=== PATIENT | male | born 1965 | race African-American/Black ===

== ENCOUNTER 2018-04-03 11:28 | Observation (INO) | payer BC ==
[~2018-04-03] VITALS: Ht 170.2 cm; Wt 95.3 kg
[~2018-04-03 11:28] MED LIST: ACTOS30 MG PO; ACTOS45 MG OR; ACYCLOVIR400 MG PO; ADULT ASPIRIN E81 MG PO; AMLOD/BENAZP1 CA5 PO; ASPIRIN LOW DOS81 MG PO; BACTROBAN2 % EX; BRILINTA90 MG PO; CEPHALEXIN500 MG OR; FLEXERIL10 MG PO; GLYBURIDE5 M1 OR; GLYBURIDE5 MG PO; HYZAAR1 TA2 PO; JANUMET1 TA1 PO; LEVEMIR1000 UNITS SC; LIPITOR20 M1 PO; LISINOPRIL20 M1 OR; LORTAB 7.5 OR; METFORMIN500 M1 OR; METFORMIN500 MG PO; MULTIVITA2 PO; PIOGLITAZONE HC15 MG PO; PRAVACHOL40 MG OR; PRAVASTATIN20 MG PO; VALACYCLOVIR H500 MG PO; ZOVIRAX800 MG OR; [UNRECOGNIZED DRUG - REMARK]
[2018-04-03 12:03] LABS: HEMATOCRIT 38.9 % (39.0-50.0); HEMOGLOBIN 12.8 g/dl (14.0-18.0); IMMATURE GRANULOCYTES 0.3 % (0.0-5.0); MEAN CELL VOLUME 87.4 fL CALC (80.0-100.0); MEAN CORPUSCULAR HGB 28.8 pG CALC (26.0-32.0); MEAN CORPUSCULAR HGB CONC 32.9 g/L CALC (32.0-36.0); NEUT# 4.02 thou/uL (1.82-7.42); RED BLOOD COUNT 4.45 mill/uL (4.70-6.10); RED CELL DISTRI WIDTH 12.9 % (11.5-15.5)
[2018-04-03 12:19] LABS: INTERNATIONAL NORMALIZED RATIO 0.9 RATIO (0.7-1.3); PROTHROMBIN TIME 9.7 SECONDS (9.0-12.5)
[2018-04-03 12:20] LABS: ALKALINE PHOSPHATASE 122 u/l (38-126); ANION GAP 13 (6-22 (CALC)); BILIRUBIN, TOTAL 0.3 mg/dL (0.0-1.4); BUN 20 mg/dL (9-20); BUN/CREATININE RATIO 16 (12-20 (CALC)); CARBON DIOXIDE 25 mmol/l (22-30); CHLORIDE 105 mmol/l (95-108); CREATININE 1.3 mg/dL (0.7-1.3); GFR 58 ML/MIN (>=60 (CALC)); GFR FOR AFR.AMER. > 60 ML/MIN (>=60 (CALC)); SODIUM 139 mmol/l (137-146); TOTAL PROTEIN 6.3 g/dL (6.3-8.2)
[2018-04-03 12:32] LABS: ALBUMIN 3.2 g/dL (3.2-5.0); SGOT/AST 50 u/l (17-59)
[2018-04-03 12:55] LABS: URINE BILIRUBIN - DIPSTICK NEGATIVE (NEGATIVE); URINE BLOOD DIPSTICK MODERATE (NEGATIVE); URINE COLOR YELLOW; URINE GLUCOSE - DIPSTICK >=1000 mg/dL (NEGATIVE); URINE KETONE NEGATIVE (NEGATIVE); URINE LEUK ESTERASE NEGATIVE (NEGATIVE); URINE NITRITE - DIPSTICK NEGATIVE (Negative); URINE PH 5.5 (4.5-8.0); URINE PROTEIN - DIPSTICK >=300 mg/dL (NEG-TRACE); URINE SPECIFIC GRAVITY 1.025; URINE UROBILINOGEN - DIPSTICK 0.2 E.U./dL (0.2)
[2018-04-03 12:57] LABS: BARBITURATES NEGATIVE (NEGATIVE); COCAINE NEGATIVE (NEGATIVE); METHADONE NEGATIVE (NEGATIVE); OXCYCODONE NEGATIVE (NEGATIVE); TETRAHYDROCANNABIONOL NEGATIVE (NEGATIVE); TRICYLIC ANTIDEPRESSANTS NEGATIVE (NEGATIVE)
[2018-04-03 13:05] LABS: URINE WBC 0-2 WBC/hpf (0-5)
[2018-04-03] MEDS ORDERED: ASPIRIN81 MG PO (13:49)
[2018-04-03] MEDS ORDERED: PLAVIX75 MG PO (13:52)
[2018-04-03] MEDS ORDERED: PANTOPRAZOLE SO40 MG PO (13:52)
[2018-04-03] MEDS ORDERED: LEVEMIR FL100 UNIT/M SC (16:35)
[2018-04-03 17:05] VITALS: BP 154/88
[2018-04-03 19:01] VITALS: BP 141/79
[2018-04-04] VITALS: BP 132/80
[2018-04-04 04:01] VITALS: BP 139/84
[2018-04-04 05:12] LABS: HEMATOCRIT 36.6 % (39.0-50.0); HEMOGLOBIN 12.3 g/dl (14.0-18.0); IMMATURE GRANULOCYTES 0.1 % (0.0-5.0); MEAN CELL VOLUME 86.7 fL CALC (80.0-100.0); MEAN CORPUSCULAR HGB 29.1 pG CALC (26.0-32.0); MEAN CORPUSCULAR HGB CONC 33.6 g/L CALC (32.0-36.0); NEUT# 4.16 thou/uL (1.82-7.42); RED BLOOD COUNT 4.22 mill/uL (4.70-6.10); RED CELL DISTRI WIDTH 12.9 % (11.5-15.5)
[2018-04-04 05:27] LABS: ALBUMIN 2.6 g/dL (3.2-5.0); ALKALINE PHOSPHATASE 87 u/l (38-126); AMYLASE 45 u/l (30-110); ANION GAP 10 (6-22 (CALC)); BILIRUBIN, TOTAL 0.4 mg/dL (0.0-1.4); BUN 15 mg/dL (9-20); BUN/CREATININE RATIO 14 (12-20 (CALC)); CARBON DIOXIDE 27 mmol/l (22-30); CHLORIDE 107 mmol/l (95-108); CREATININE 1.1 mg/dL (0.7-1.3); GFR > 60 ML/MIN (>=60 (CALC)); GFR FOR AFR.AMER. > 60 ML/MIN (>=60 (CALC)); LIPASE 66 u/l (23-300); POTASSIUM 3.6 mmol/l (3.5-5.1); SGOT/AST 38 u/l (17-59); SODIUM 140 mmol/l (137-146); TOTAL PROTEIN 5.5 g/dL (6.3-8.2)
[2018-04-04 08:02] VITALS: BP 156/89
[2018-04-04 11:16] VITALS: BP 152/93
== END 2018-04-04 13:15 | disposition home or self-care (01) | DRG 305 ==
LOC: ED 11:28 → ED-I 15:08 → ED 16:09 → MS2 16:10
PROVIDERS: Emergency Medicine; ADMIT Internal Medicine Nephrology; ATTEND Internal Medicine Nephrology
DX: I10 Essential (primary) hypertension (principal); E11.9 Type 2 diabetes mellitus without complications; E78.5 Hyperlipidemia, unspecified; I25.10 Atherosclerotic heart disease of native coronary artery without angina pectoris; R80.9 Proteinuria, unspecified; T46.5X6A Underdosing of other antihypertensive drugs, initial encounter; I25.2 Old myocardial infarction; Z91.128 Patient's intentional underdosing of medication regimen for other reason; Z86.73 Personal history of transient ischemic attack (TIA), and cerebral infarction without residual deficits; Z95.5 Presence of coronary angioplasty implant and graft
CPT/HCPCS: G0378

== ENCOUNTER 2020-05-08 21:24 | Emergency (ER) | payer BC ==
[~2020-05-08] VITALS: Ht 170.2 cm; Wt 98.8 kg
[~2020-05-08 21:24] MED LIST changes: +ASPIRIN81 MG PO; +LEVEMIR FL100 UNIT/M SC; +PANTOPRAZOLE SO40 MG PO; +PLAVIX75 MG PO
[2020-05-08] MEDS ORDERED: FAMOTIDINE MAXI20 MG (21:47)
[2020-05-08] MEDS ORDERED: NOVOLIN 70/30 INNLT SC (21:48)
[2020-05-08 22:25] LABS: IMMATURE GRANULOCYTES 0.4 % (0.0-5.0); MEAN CELL VOLUME 85.8 fL CALC (80.0-100.0); MEAN CORPUSCULAR HGB 26.8 pG CALC (26.0-32.0); MEAN CORPUSCULAR HGB CONC 31.3 g/dL CAL (32.0-36.0); NEUT# 5.35 thou/uL (1.82-7.42); RED BLOOD COUNT 3.39 mill/uL (4.70-6.10); RED CELL DISTRI WIDTH 14.3 % (11.5-15.5)
[2020-05-08 22:28] LABS: HEMATOCRIT 29.1 % (39.0-50.0); HEMOGLOBIN 9.1 g/dl (14.0-18.0)
[2020-05-08 22:42] LABS: BILIRUBIN, TOTAL 0.4 mg/dL (0.0-1.4); TOTAL PROTEIN 6.4 g/dL (6.3-8.2)
[2020-05-08 22:46] LABS: CREATININE 3.7 mg/dL (0.7-1.3); POTASSIUM 4.4 mmol/l (3.5-5.1)
[2020-05-08 23:45] VITALS: BP 150/84
== END 2020-05-08 23:45 | disposition home or self-care (01) | DRG 684 ==
LOC: ED 21:24
PROVIDERS: Family Medicine
DX: I12.9 Hypertensive chronic kidney disease with stage 1 through stage 4 chronic kidney disease, or unspecified chronic kidney disease (principal); E11.22 Type 2 diabetes mellitus with diabetic chronic kidney disease; N18.9 Chronic kidney disease, unspecified; I25.2 Old myocardial infarction; Z86.73 Personal history of transient ischemic attack (TIA), and cerebral infarction without residual deficits; Z95.5 Presence of coronary angioplasty implant and graft; Z79.4 Long term (current) use of insulin

== ENCOUNTER 2020-12-09 12:12 | Inpatient (IN) | payer MEDICAID ==
[~2020-12-09] VITALS: Ht 170.2 cm; Wt 87.1 kg
[~2020-12-09 12:12] MED LIST changes: +D2000 ULTRA PO; +FAMOTIDINE MAXI20 MG; +FUROSEMIDE20 MG PO; +HYDRALAZINE50 MG PO; +LEVEMIR100 UNIT SC; +METOLAZONE5 MG PO; +METOPROLOL SUCC50 MG PO; +NIFEDIPINE60 MG PO; +NOVOLIN 70/30 F1 INJ SC; +NOVOLIN 70/30 INNLT SC; +VELPHORO500 MG PO
--- NOTE | 2020-12-09 12:30 | NUR ---
PATIENT AMBULATORY TO ROOM BEDSIDE TRIAGE COMPLETED
[2020-12-09 13:02] LABS: HEMATOCRIT 25.1 % (39.0-50.0); HEMOGLOBIN 7.9 g/dl (14.0-18.0); IMMATURE GRANULOCYTES 0.2 % (0.0-5.0); MEAN CELL VOLUME 89.6 fL CALC (80.0-100.0); MEAN CORPUSCULAR HGB 28.2 pG CALC (26.0-32.0); MEAN CORPUSCULAR HGB CONC 31.5 g/dL CAL (32.0-36.0); NEUT# 5.7 thou/uL (1.82-7.42); RED BLOOD COUNT 2.8 mill/uL (4.70-6.10)
--- NOTE | 2020-12-09 13:12 | NUR ---
PATIENT RESTING IN BED WITH SUPPORT/FAMILY AT BEDSIDE. WARM BLANKETS PROVIDED. LABS COLLECTED. PATIENT DECLINED ANY FURTHER NEEDS AT THIS TIME. BED IN LOW POSITION, CALL LIGHT WITHIN REACH.
[2020-12-09 13:18] LABS: ALBUMIN 3.5 g/dL (3.2-5.0); BILIRUBIN, TOTAL 0.3 mg/dL (0.0-1.4); POTASSIUM 3.6 mmol/l (3.5-5.1); TOTAL PROTEIN 7.2 g/dL (6.3-8.2)
[2020-12-09 13:30] LABS: CREATININE 9.8 mg/dL (0.7-1.3)
--- NOTE | 2020-12-09 14:00 | NUR ---
PATIENT LYING IN BED RESTING COMFORTABLY WITH SUPPORT PERSON AT BEDSIDE. VSS
[2020-12-09 14:51] LABS: URINE BILIRUBIN - DIPSTICK NEGATIVE (NEGATIVE); URINE BLOOD DIPSTICK TRACE-INTACT (NEGATIVE); URINE COLOR YELLOW; URINE GLUCOSE - DIPSTICK 250 mg/dL (NEGATIVE); URINE KETONE NEGATIVE (NEGATIVE); URINE LEUK ESTERASE NEGATIVE (NEGATIVE); URINE PROTEIN - DIPSTICK >=300 mg/dL (NEG-TRACE); URINE UROBILINOGEN - DIPSTICK 0.2 E.U./dL (0.2)
--- NOTE | 2020-12-09 15:00 | NUR ---
PATIENT LYING IN BED WITH SUPPORT PERSON AT BEDSIDE. VSS
[2020-12-09 15:02] LABS: URINE NITRITE - DIPSTICK NEGATIVE (Negative)
[2020-12-09 15:03] LABS: URINE RBC 0-2 RBC/hpf (0-5); URINE WBC 0-2 WBC/hpf (0-5)
--- NOTE | 2020-12-09 16:00 | NUR ---
PATIENT LYING IN BED WITH LIGHTS DIMMED SLEEPING. VSS. PERSON AT BEDSIDE.
--- NOTE | 2020-12-09 17:34 | NUR ---
PATIENT AND SUPPORT PERSON SLEEPING IN ROOM COMFORTABLY. NO NEEDS AT THIS TIME. VSS.
--- NOTE | 2020-12-09 19:00 | NUR ---
PT RESTING HOFF CATH IN PLACE AND DRAINING LARGE AMOUNT CLEAR YELLOW URINE, PT AWARE OF PEDNING ADMISSION. VISITOR AT BEDSIDE
--- NOTE | 2020-12-09 19:24 | NUR ---
PT RESTING ON STRETCHER WITH NO NEW COMPLAINTS OFFERED, VISITOR AT BEDSIDE
--- NOTE | 2020-12-09 20:35 | NUR ---
PT AWRE OF PENDING ADMISSIONA DN AWAITING ROOM ASSIGNMENT, DOZES INTERMITTENLY NO COMPLAINTS OFFERED.
--- NOTE | 2020-12-09 21:41 | NUR ---
PT RESTING CALLED FOR CONCENR OF LEAKING AT [facility]OFF NO LEAKING NOTED BUT WILL CONTINUE TO MONITOR.
--- NOTE | 2020-12-09 21:57 | NUR ---
REPORT CALLED TO [facility]/ NO TELEMETRY ASSIGNED.
--- NOTE | 2020-12-09 22:25 | NUR ---
PT TRANSPORTED TO MED SURG ROOM 278 VIA WHEELCAHIR, ALL BELONGINGS SENT WITH PATIENT.
[2020-12-09 22:28] VITALS: BP 192/89
--- NOTE | 2020-12-09 22:28 | NUR ---
PT ARRIVED TO MED SURG UNIT VIA WC ACCOMPANIED BY [facility] [employer]. PT APPEARS TO BE IN STABLE CONDITION AT THIS TIME. V/S ASSESSED, BP ELEVATED. PT ORIENTED TO CALL LIGHT, BED, LIGHTS, ROOM AND PROVIDED URINAL AT BEDSIDE. BELT NOTCHER IN WITH PT AT THIS TIME.
--- NOTE | 2020-12-09 22:40 | NUR ---
ASSESSMENT COMPLETED AND PT MEDICATED ORDERS PROVIDE FOR ELEVATED BP. ADMISSION COMPLETED AT THIS TIME ALSO. ACCU-CHECK SHOWS BS 65 AT THIS TIME. PT REPORTS THAT IT WAS NOT CHECKED IN THE ED AND THAT HE HAD NOT HAD ANYTHING TO EAT OR DRINK OTHER THAN WATER SINCE ARRIVING IN THE ED AT 11:30AM EARLIER THIS DAY. THE [employer]IONAL PS[employer]IAT[employer] DIRECTOR ON THE FLOOR PROVIDED HIM WITH FOOD AND JUICE. WILL FOLLOW-UP ASSESS ACCU-CHECK AND BP.
[2020-12-10 01:00] VITALS: BP 159/79
--- NOTE | 2020-12-10 01:00 | NUR ---
BP AND ACCU-CHECK REASSESSED. ACCU-CHECK SHOWS A GLUCOSE OF 156 AND BP RESPONDED TO MEDICATION.
[2020-12-10 04:00] VITALS: BP 166/84
[2020-12-10 05:34] LABS: HEMATOCRIT 22.4 % (39.0-50.0); HEMOGLOBIN 7.1 g/dl (14.0-18.0); MEAN CELL VOLUME 89.2 fL CALC (80.0-100.0); MEAN CORPUSCULAR HGB 28.3 pG CALC (26.0-32.0); MEAN CORPUSCULAR HGB CONC 31.7 g/dL CAL (32.0-36.0); RED BLOOD COUNT 2.51 mill/uL (4.70-6.10); RED CELL DISTRI WIDTH 13.9 % (11.5-15.5)
[2020-12-10 05:59] LABS: ALBUMIN 2.8 g/dL (3.2-5.0); MAGNESIUM 1.5 mg/dL (1.6-2.3); POTASSIUM 3.5 mmol/l (3.5-5.1)
[2020-12-10 06:18] LABS: CREATININE 9.4 mg/dL (0.7-1.3)
--- NOTE | 2020-12-10 08:00 | NUR ---
PT AWAKE, ALERT AND ORIENTED X4 PT DENIES ANY PAIN, SOB OR DISCOMFORT AT THIS TIME. VS AND ASSESSMENT COMPLETE. HR NORMAL. LUNGS CLEAR BREATHS ARE EVEN AND UNLABORED. PT ON RA. ABDOMEN SOFT AND NONTENDER. BOWEL SOUNDS ACTIVE. IV INTACT AND PATENT. PERIPHERAL PULSES PALPABLE. SAFETY MEASURES ARE IN PLACE AND CALL LIGHT WITHIN PATIENTS REACH
--- NOTE | 2020-12-10 11:55 | NUR ---
RESTING COMFORTABLY IN BED. PT DENIES ANY IMMEDIATE NEEDS. NO PAIN NO SOB WILL CONTINUE TO MONITOR PATIENT
[2020-12-10] MEDS ORDERED: TAMSULOSIN HCL0.4 MG PO (13:02)
--- NOTE | 2020-12-10 14:04 | NUR ---
PT GIVEN DISCHARGE INSTRUCTIONA. PT VERBALIZES UNDERSTANDING
== END 2020-12-10 14:14 | disposition home or self-care (01) | DRG 696 ==
LOC: ED 12:12 → ED-I 14:23 → ED 18:57 → MS2 18:58
PROVIDERS: ADMIT Hospitalist; ATTEND Hospitalist
PROC: 0T9B70Z Drainage of Bladder with Drainage Device, Via Natural or Artificial Opening (ICD-10-PCS; principal; 2020-12-09)
DX: R33.9 Retention of urine, unspecified (principal); I13.2 Hypertensive heart and chronic kidney disease with heart failure and with stage 5 chronic kidney disease, or end stage renal disease; N18.5 Chronic kidney disease, stage 5; N25.81 Secondary hyperparathyroidism of renal origin; I50.9 Heart failure, unspecified; E11.22 Type 2 diabetes mellitus with diabetic chronic kidney disease; D63.1 Anemia in chronic kidney disease; E83.42 Hypomagnesemia; Z79.4 Long term (current) use of insulin; Z20.822 Contact with and (suspected) exposure to COVID-19
CPT/HCPCS: J3475

== ENCOUNTER 2021-01-11 10:01 | Day surgery (SDC) | payer MEDICAID ==
[~2021-01-11] VITALS: Ht 170.2 cm; Wt 89.8 kg
[~2021-01-11 10:01] MED LIST changes: +B121000 MCG PO; -FAMOTIDINE MAXI20 MG; +FAMOTIDINE MAXI20 MG PO; +FOLIC ACID1 MG PO; +PHOSLO667 M1 PO; +TAMSULOSIN HCL0.4 MG PO
[2021-01-11 12:51] VITALS: BP 149/75
== END 2021-01-11 13:16 | disposition home or self-care (01) ==
LOC: ORM 10:01
PROVIDERS: ATTEND Surgery
DX: E11.22 Type 2 diabetes mellitus with diabetic chronic kidney disease (principal); N18.6 End stage renal disease; Z79.4 Long term (current) use of insulin

== ENCOUNTER 2021-01-11 16:35 | Emergency (ER) | payer MEDICAID ==
[~2021-01-11] VITALS: Ht 177.8 cm; Wt 90.0 kg
[2021-01-11 17:49] VITALS: BP 155/75
== END 2021-01-11 18:00 | disposition home or self-care (01) ==
LOC: ED 16:35
DX: T82.838A Hemorrhage due to vascular prosthetic devices, implants and grafts, initial encounter (principal); E11.22 Type 2 diabetes mellitus with diabetic chronic kidney disease; I12.9 Hypertensive chronic kidney disease with stage 1 through stage 4 chronic kidney disease, or unspecified chronic kidney disease; N18.4 Chronic kidney disease, stage 4 (severe); Y83.8 Other surgical procedures as the cause of abnormal reaction of the patient, or of later complication, without mention of misadventure at the time of the procedure; Z79.4 Long term (current) use of insulin

== ENCOUNTER 2021-01-11 20:31 | Emergency (ER) | payer MEDICAID ==
[~2021-01-11] VITALS: Ht 170.2 cm; Wt 90.0 kg
[2021-01-11 21:15] VITALS: BP 157/79
== END 2021-01-11 21:15 | disposition home or self-care (01) ==
LOC: ED 20:31
DX: T82.838A Hemorrhage due to vascular prosthetic devices, implants and grafts, initial encounter (principal); I12.9 Hypertensive chronic kidney disease with stage 1 through stage 4 chronic kidney disease, or unspecified chronic kidney disease; E11.22 Type 2 diabetes mellitus with diabetic chronic kidney disease; N18.4 Chronic kidney disease, stage 4 (severe); Y83.8 Other surgical procedures as the cause of abnormal reaction of the patient, or of later complication, without mention of misadventure at the time of the procedure; Z79.4 Long term (current) use of insulin

== ENCOUNTER 2021-01-12 15:59 | Emergency (ER) | payer MEDICAID ==
[~2021-01-12] VITALS: Ht 170.2 cm; Wt 100.0 kg
[2021-01-12 19:00] VITALS: BP 166/80
== END 2021-01-12 19:06 | disposition home or self-care (01) ==
LOC: ED 15:59
DX: T82.838A Hemorrhage due to vascular prosthetic devices, implants and grafts, initial encounter (principal); E11.22 Type 2 diabetes mellitus with diabetic chronic kidney disease; I12.9 Hypertensive chronic kidney disease with stage 1 through stage 4 chronic kidney disease, or unspecified chronic kidney disease; N18.4 Chronic kidney disease, stage 4 (severe); Y83.8 Other surgical procedures as the cause of abnormal reaction of the patient, or of later complication, without mention of misadventure at the time of the procedure

== ENCOUNTER 2021-01-19 23:23 | Emergency (ER) | payer MEDICAID ==
[~2021-01-19] VITALS: Ht 170.2 cm; Wt 90.0 kg
[2021-01-20 00:10] VITALS: BP 157/77
== END 2021-01-20 00:10 | disposition home or self-care (01) ==
LOC: ED 23:23
DX: T82.838A Hemorrhage due to vascular prosthetic devices, implants and grafts, initial encounter (principal); E11.22 Type 2 diabetes mellitus with diabetic chronic kidney disease; I12.0 Hypertensive chronic kidney disease with stage 5 chronic kidney disease or end stage renal disease; N18.6 End stage renal disease; Y83.8 Other surgical procedures as the cause of abnormal reaction of the patient, or of later complication, without mention of misadventure at the time of the procedure; Z99.2 Dependence on renal dialysis

== ENCOUNTER 2021-08-29 15:19 | Emergency (ER) | payer MEDICARE, MEDICAID ==
[~2021-08-29] VITALS: Ht 170.2 cm; Wt 80.1 kg
[2021-08-29 15:24] VITALS: BP 125/67
[2021-08-29 15:30] VITALS: BP 130/68
[2021-08-29 15:45] VITALS: BP 112/61
[2021-08-29 16:00] VITALS: BP 122/71
[2021-08-29] MEDS ORDERED: METOPROL TAR25 MG PO (16:03)
[2021-08-29] MEDS ORDERED: CLOPIDOGREL75 MG PO (16:03)
[2021-08-29] MEDS ORDERED: NIFEDIPINE60 MG PO (16:04)
[2021-08-29] MEDS ORDERED: HYDRALAZINE10 M2 PO (16:04)
[2021-08-29] MEDS ORDERED: FUROSEMIDE20 MG PO (16:04)
[2021-08-29] MEDS ORDERED: FOLIC ACID1 MG PO (16:05)
[2021-08-29] MEDS ORDERED: PHOSLO667 M1 PO (16:05)
[2021-08-29] MEDS ORDERED: LIPITOR40 M1 PO (16:05)
[2021-08-29] MEDS ORDERED: FAMOTIDINE20 M1 PO (16:05)
[2021-08-29] MEDS ORDERED: [UNRECOGNIZED DRUG - REMARK] (16:06)
[2021-08-29] MEDS ORDERED: TAMSULOSIN0.4 MG PO (16:08)
[2021-08-29 16:16] VITALS: BP 138/64
[2021-08-29 16:19] LABS: IMMATURE GRANULOCYTES 0.4 % (0.0-5.0); MEAN CELL VOLUME 91.9 fL CALC (80.0-100.0); MEAN CORPUSCULAR HGB 29.1 pG CALC (26.0-32.0); MEAN CORPUSCULAR HGB CONC 31.7 g/dL CAL (32.0-36.0); NEUT# 5.56 thou/uL (1.82-7.42); RED BLOOD COUNT 3.47 mill/uL (4.70-6.10); RED CELL DISTRI WIDTH 13.9 % (11.5-15.5)
[2021-08-29 16:22] LABS: HEMATOCRIT 31.9 % (39.0-50.0); HEMOGLOBIN 10.1 g/dl (14.0-18.0)
[2021-08-29 16:43] LABS: INTERNATIONAL NORMALIZED RATIO 0.9 RATIO (0.7-1.3); PROTHROMBIN TIME 9.7 SECONDS (9.0-12.5)
[2021-08-29 16:44] LABS: BILIRUBIN, TOTAL 0.3 mg/dL (0.0-1.4); POTASSIUM 3.3 mmol/l (3.5-5.1); TOTAL PROTEIN 8.4 g/dL (6.3-8.2)
[2021-08-29 16:46] LABS: ALBUMIN 4.2 g/dL (3.2-5.0); CREATININE 7.9 mg/dL (0.7-1.3)
[2021-08-29 17:38] LABS: URINE BLOOD DIPSTICK LARGE (NEGATIVE); URINE GLUCOSE - DIPSTICK 250 mg/dL (NEGATIVE); URINE KETONE 15 mg/dL (NEGATIVE); URINE LEUK ESTERASE MODERATE (NEGATIVE); URINE NITRITE - DIPSTICK POSITIVE (Negative); URINE PROTEIN - DIPSTICK >=300 mg/dL (NEG-TRACE)
[2021-08-29 17:39] LABS: URINE BILIRUBIN - DIPSTICK NEGATIVE (NEGATIVE); URINE COLOR BLOODY; URINE RBC TNTC RBC/hpf (0-5)
[2021-08-29] MEDS ORDERED: KEFLEX500 MG PO (18:08)
[2021-08-29 18:12] VITALS: BP 138/64
== END 2021-08-29 18:31 | disposition home or self-care (01) ==
LOC: ED 15:19
PROVIDERS: Nurse Practitioner
DX: N39.0 Urinary tract infection, site not specified (principal); B96.1 Klebsiella pneumoniae [K. pneumoniae] as the cause of diseases classified elsewhere; R31.9 Hematuria, unspecified; I12.0 Hypertensive chronic kidney disease with stage 5 chronic kidney disease or end stage renal disease; E11.22 Type 2 diabetes mellitus with diabetic chronic kidney disease; N18.6 End stage renal disease; Z99.2 Dependence on renal dialysis; Z79.4 Long term (current) use of insulin

== ENCOUNTER 2023-03-13 17:35 | Emergency (ER) | payer MEDICARE, MEDICAID ==
[~2023-03-13] VITALS: Ht 170.2 cm; Wt 87.2 kg
[~2023-03-13 17:35] MED LIST changes: +ASPIRIN 81 LOW81 MG; +CLOPIDOGREL75 MG PO; +FAMOTIDINE20 M1 PO; +HYDRALAZINE10 M2 PO; +KEFLEX500 MG PO; +LIPITOR40 M1 PO; +METOPROL TAR25 MG PO; +TAMSULOSIN0.4 MG PO; +[UNRECOGNIZED DRUG - REMARK]
[2023-03-13 21:14] LABS: BASO% 0.1 % (0-3); EOS% 0.7 % (0-8); IMMATURE GRANULOCYTES 0.1 % (0.0-5.0); LYMPH% 18.7 % (15-41); MEAN CELL VOLUME 97.4 fL CALC (80.0-100.0); MEAN CORPUSCULAR HGB CONC 31.9 g/dL CAL (32.0-36.0); MONO% 7.3 % (2-13); NEUT# 6.95 thou/uL (1.82-7.42); NEUT% 73.1 % (42-76); RED BLOOD COUNT 4.19 mill/uL (4.70-6.10); RED CELL DISTRI WIDTH 13.4 % (11.5-15.5)
[2023-03-13 21:17] LABS: HEMATOCRIT 40.8 % (39.0-50.0)
[2023-03-13 21:21] VITALS: BP 114/77
[2023-03-13 21:31] VITALS: BP 136/70
[2023-03-13 21:31] LABS: ALBUMIN 4.7 g/dL (3.2-5.0); BILIRUBIN, TOTAL 0.4 mg/dL (0.2-1.3); TOTAL PROTEIN 8.6 g/dL (6.3-8.2)
[2023-03-13 21:36] LABS: CREATININE 10.3 mg/dL (0.7-1.3); POTASSIUM 4.2 mmol/l (3.5-5.1)
[2023-03-13 22:00] VITALS: BP 133/68
[2023-03-13 22:31] VITALS: BP 125/66
[2023-03-13 23:26] LABS: URINE BILIRUBIN - DIPSTICK Negative (NEGATIVE); URINE BLOOD DIPSTICK Moderate (NEGATIVE); URINE COLOR Yellow; URINE GLUCOSE - DIPSTICK 250 mg/dL (NEGATIVE); URINE KETONE Negative (NEGATIVE); URINE LEUK ESTERASE Trace (NEGATIVE); URINE NITRITE - DIPSTICK Negative (Negative); URINE PH 7.5 (4.5-8.0); URINE PROTEIN - DIPSTICK >=300 mg/dL (NEG-TRACE); URINE UROBILINOGEN - DIPSTICK 0.2 E.U./dL (0.2)
[2023-03-13 23:27] LABS: URINE SQUAMOUS EPITHELIAL CELL FEW EPI/hpf (0-FEW); URINE WBC 0-2 WBC/hpf (0-5)
[2023-03-14 02:02] VITALS: BP 125/66
== END 2023-03-14 02:12 | disposition short-term general hospital (02) ==
LOC: ED 17:35
PROVIDERS: Family Medicine
DX: E11.649 Type 2 diabetes mellitus with hypoglycemia without coma (principal); T38.3X5A Adverse effect of insulin and oral hypoglycemic [antidiabetic] drugs, initial encounter; N17.9 Acute kidney failure, unspecified; E11.22 Type 2 diabetes mellitus with diabetic chronic kidney disease; I12.0 Hypertensive chronic kidney disease with stage 5 chronic kidney disease or end stage renal disease; N18.6 End stage renal disease; Z99.2 Dependence on renal dialysis; Z79.4 Long term (current) use of insulin